=== PATIENT | male | born 1950 | race Caucasian/White ===

== ENCOUNTER 2024-09-22 13:28 | Outpatient (CLI) | payer MEDICARE, BC, SELFPAY ==
--- NOTE | 2024-10-07 12:50 | W.PM.SLEEP ---
Sleep Study Details Details Interpreting Provider: Celi Date of Sleep Study: 09/22/24 Sleep Study Details: STUDY TYPE:? Home unattended ? BMI:? 28.7 ORDERING PROVIDER:? Celi INDICATION:? Concern about sleep apnea ? SLEEP SUMMARY:? 483 minutes monitored RESPIRATORY SUMMARY:? AHI 17.9 per CMS guideline, 29 per rule 1A Low oxygen 83 53.9% of study oxygen less than 90% Snoring 86.3% PERIODIC LIMB MOVEMENTS OF SLEEP:? Not recorded CARDIAC:? Range 48-74, mean 56.4 beats per minute IMPRESSION:? Significant hypo oxygenation was noted with over half the study oxygen less than 90% Moderate apnea per CMS guideline. RECOMMENDATION: In-lab titration versus AutoSet CPAP with follow-up oximetry.
== END 2024-09-22 13:29 | disposition home or self-care (01) ==
LOC: SLEEP 13:30
PROVIDERS: Visit Provider Otolaryngology
DX: G47.33 Obstructive sleep apnea (adult) (pediatric) (principal)
CPT/HCPCS: 95806